=== PATIENT | male | born 1995 | race Caucasian/White ===

== ENCOUNTER 2017-06-04 16:10 | Emergency (ER) | payer MEDICAID, OTHER ==
[2017-06-04 16:39] VITALS: TEMP 98.8; O2SAT 99
--- NOTE | 2017-06-04 17:48 | ED PDOC ---
Arrival/HPI - General Chief Complaint: Lower Extremity Problem/Injury Time Seen by Provider: 06/04/17 16:43 Historian: Patient - History of Present Illness Narrative History of Present Illness (Text): 06/04/17 17:44 22-year-old male presents today with right knee pain status post injury. Patient states he fell while moving boxes and landed on a metal isra sustaining an injury to the anterior aspect of the right knee. Patient is complaining of severe pain to the anterior aspect of the knee with the inability to extend the knee. He denies numbness weakness or tingling in the extremity. Patient states he has a prior history of fracture in that knee. No medications taken for pain. Incident occurred prior to arrival. Patient denies head injury. Denies neck or back pain. Denies dizziness or weakness. Past Medical History - Provider Review Nursing Documentation Reviewed: Yes - Travel History Have you recently traveled outside [place] w/in the past 3 mons?: No - Past History Past History: No Previous - Tetanus Immunization Tetanus Immunization: Unknown - Psychiatric Hx Depression: No Hx Emotional Abuse: No Hx Physical Abuse: No Hx Substance Use: Yes - Surgical History Hx Appendectomy: Yes - Suicidal Assessment Feels Threatened In Home Enviroment: No Family/Social History - Physician Review Nursing Documentation Reviewed: Yes Family/Social History: Unknown Family HX Smoking Status: Never Smoked Hx Alcohol Use: No Hx Substance Use: Yes Substance used: Marijuana Hx Substance Use Treatment: No Allergies/Home Meds Allergies/Adverse Reactions: Allergies No Known Allergies Allergy (Verified 06/15/15 21:39) Review of Systems - Review of Systems Constitutional: absent: Fatigue, Fevers Respiratory: absent: SOB, Cough Cardiovascular: absent: Chest Pain, Palpitations Gastrointestinal: absent: Abdominal Pain, Diarrhea, Nausea, Vomiting Musculoskeletal: Arthralgias (right knee). absent: Back Pain, Neck Pain Skin: absent: Rash, Pruritis Neurological: absent: Headache, Dizziness Psychiatric: absent: Anxiety, Depression Physical Exam Vital Signs Reviewed: Yes Vital Signs Temp Pulse Resp BP Pulse Ox 06/04/17 16:36 98.8 F 59 L 16 141/77 99 Temperature: Afebrile Blood Pressure: Normal Pulse: Regular Respiratory Rate: Normal Appearance: Positive for: Well-Appearing, Non-Toxic, Comfortable Pain Distress: None Mental Status: Positive for: Alert and Oriented X 3 - Systems Exam Head: Present: Atraumatic Mouth: Present: Moist Mucous Membranes Neck: Present: Normal Range of Motion Respiratory/Chest: Present: Clear to Auscultation, Good Air Exchange. No: Respiratory Distress, Accessory Muscle Use Cardiovascular: Present: Regular Rate and Rhythm, Normal S1, S2. No: Murmurs Abdomen: No: Tenderness, Rebound, Guarding Back: No: Midline Tenderness, Paraspinal Tenderness Upper Extremity: Present: Normal Inspection, Normal ROM Lower Extremity: Present: NORMAL PULSES, Tenderness (right knee; + edema and tenderness noted over the anterior aspect of the knee with knee held inflexion with inability to extend knee. no calf tenderness. ), Swelling, Neurovascularly Intact, Capillary Refill < 2 s. No: CALF TENDERNESS, Normal ROM, Erythema Neurological: Present: GCS=15, Speech Normal Skin: Present: Warm, Dry, Normal Color Psychiatric: Present: Alert, Oriented x 3 Medical Decision Making ED Course and Treatment: 06/04/17 17:50 22-year-old male with right knee pain status post injury Toradol given for pain X-rays of the right knee: Question tibial plateau fracture pt reassessment; pt feeling better after medications; still unable to extend knee; CAT scan of the Right knee:FINDINGS: There is an avulsion fracture of the lateral aspect of the tibial spine, with a roughly 1.8 x 0.3 centimeter osteochondral fragment in the anterior aspect of the intercondylar notch. There is no joint effusion. No additional fracture or dislocation is observed. IMPRESSION: Anterior intercondylar notch fracture as discussed above 06/04/17 19:[address] Romano orthopedist; he advised han dressing, knee immobilizer, non weight bearing, crutches, f/u in office sunday morning at 9am. copy of xrays and CT given to patient to bring to orthopedist. pt placed in han dressing, knee immobilizer, crutches given for ambulation. All results discussed in depth with patient and family. Patient advised to follow-up with the orthopedist SundayJune 08 at 9 AM. Advised immediate return if symptoms worsen or persist or if new concerning symptoms develop. Stressed the importance of using crutches and nonweightbearing status. Patient verbalizes understanding of discharge instructions and need for immediate followup. all aspects of this case were discussed the attending of record. Impression: Tibial spine fracture, knee fracture Motrin every 6 hours as needed for pain Percocet 1 tablet every 6 hours as needed for [id number] pain: May cause drowsiness Rest, ice, compression, elevation Use crutches for ambulation Follow-up with the orthopedist SundayJune 08 at 9 AM - bring the copy of x-rays and CAT scan with you to the office. Return immediately if symptoms worsen or persist or if new concerning symptoms develop - RAD Interpretation Radiology Orders: 06/04/17 16:44 KNEE W PATELLA RIGHT 3 VIEW [RAD] Stat 06/04/17 17:19 EXT LOWER W/O CONTRAST RIGHT [CT] Stat - Medication Orders Current Medication Orders: Discontinued Medications Ketorolac Tromethamine (Toradol) 60 mg IM STAT STA Stop: 06/04/17 16:44 Last Admin: 06/04/17 16:49 Dose: 60 mg Ketorolac Tromethamine (Toradol) Confirm Administered Dose 60 mg .ROUTE .STK- MED ONE Stop: 06/04/17 16:47 Last Admin: 06/04/17 16:49 Dose: Disposition/Present on Arrival - Present on Arrival Any Indicators Present on Arrival: No History of DVT/PE: No History of Uncontrolled Diabetes: No Urinary Catheter: No History of Decub. Ulcer: No History Surgical Site Infection Following: None - Disposition Have Diagnosis and Disposition been Completed?: Yes Diagnosis: Closed fracture of tibial spine Disposition: HOME/ ROUTINE Disposition Time: 19:31 Patient Plan: Discharge Condition: GOOD Discharge Instructions (ExitCare): Leg Fracture (ED) Additional Instructions: Motrin every 6 hours as needed for pain Percocet 1 tablet every 6 hours as needed for pjbplwir-rd-[id number] pain: May cause drowsiness Rest, ice, compression, elevation Use crutches for ambulation Follow-up with the orthopedist SundayJune 08 at 9 AM - bring the copy of x-rays and CAT scan with you to the office. Return immediately if symptoms worsen or persist or if new concerning symptoms develop Prescriptions: Ibuprofen [Motrin] 600 mg PO Q6H PRN #20 tab PRN Reason: pain/fever reduction oxyCODONE/Acetaminophen [Percocet 5/325 mg Tab] 1 tab PO Q6H PRN #6 tab PRN Reason: moderate to severe pain Referrals: Harriet Ayala MD [Primary Care Provider] - Follow up with primary Ameya Romano III, MD [Medical Doctor] - Follow up with primary Forms: [employer] (Chinese), WORK NOTE
--- NOTE | 2017-06-04 18:34 | CT ---
PROCEDURE: HISTORY: knee pain s/p injury COMPARISON: TECHNIQUE: FINDINGS: There is an avulsion fracture of the lateral aspect of the tibial spine, with a roughly 1.8 x 0.3 centimeter osteochondral fragment in the anterior aspect of the intercondylar notch. There is no joint effusion. No additional fracture or dislocation is observed. IMPRESSION: Anterior intercondylar notch fracture as discussed above
[2017-06-04 19:26] VITALS: BP 115/58; PULSE 54; RESP 18
--- NOTE | 2017-06-05 08:56 | RAD ---
PROCEDURE: Right Knee Radiographs. HISTORY: knee pain COMPARISON: None. FINDINGS: BONES: Normal. No fracture. JOINTS: Normal. No osteoarthritis. JOINT EFFUSION: None. OTHER FINDINGS: None. IMPRESSION: Normal radiographs of the right knee.
== END 2017-06-04 19:57 | disposition home or self-care (01) ==
LOC: ED 16:10
DX: S82.111A Displaced fracture of right tibial spine, initial encounter for closed fracture (principal); W18.39XA Other fall on same level, initial encounter; Y93.89 Activity, other specified; Y92.89 Other specified places as the place of occurrence of the external cause; Y99.0 Civilian activity done for income or pay
CPT/HCPCS: 73562; 73700; 96372; 99284; J1885

== ENCOUNTER 2017-06-30 15:24 | Emergency (ER) | payer OTHER ==
[2017-06-30 15:44] VITALS: BP 131/78; PULSE 78; RESP 18; TEMP 98.7; O2SAT 97
--- NOTE | 2017-06-30 16:26 | ED PDOC ---
Arrival/HPI - General Chief Complaint: Lower Extremity Problem/Injury Time Seen by Provider: 06/30/17 15:48 Historian: Patient - History of Present Illness Narrative History of Present Illness (Text): 06/30/17 16:20 A 22 year old male, whose past medical history includes surgery at [facility] on 2016 for a tibia fracture after falling at work and sustaining injury to his knee, presents to the emergency department with right knee pain. The patient states that he went to the orthopedist yesterday to get his sutures removed, and was advised by the doctor to gradually start putting weight on the knee. When trying to get into the elevator, the patient struck his heel on the uneven entrance of the elevator and has been experiencing increasing pain since. The patient states that he took Motrin, but his symptoms have not improved. The patient denies fevers, chills, numbness/tingling or any other complaints. PMD: Dr. Ayala Orthopedist: Dr. Gastelum Time/Duration: Other (Yesterday) Symptom Onset: Sudden Symptom Course: Unchanged Activities at Onset: Rest, Light Context: Other ('s office) Past Medical History - Provider Review Nursing Documentation Reviewed: Yes - Past History Past History: No Previous - Infectious Disease Hx of Infectious Diseases: None - Tetanus Immunization Tetanus Immunization: Unknown - Psychiatric Hx Depression: No Hx Emotional Abuse: No Hx Physical Abuse: No Hx Substance Use: Yes - Surgical History Hx Appendectomy: Yes Hx Orthopedic Surgery: Yes (06/12/17) - Suicidal Assessment Feels Threatened In Home Enviroment: No Family/Social History - Physician Review Nursing Documentation Reviewed: Yes Family/Social History: No Known Family HX Smoking Status: Never Smoked Hx Alcohol Use: No Hx Substance Use: Yes Substance used: Marijuana Hx Substance Use Treatment: No Allergies/Home Meds Allergies/Adverse Reactions: Allergies No Known Allergies Allergy (Verified 06/30/17 15:43) Review of Systems - Physician Review All systems were reviewed & negative as marked: Yes - Review of Systems Constitutional: absent: Fevers, Night Sweats ENT: absent: Sore Throat Respiratory: absent: SOB, Cough Cardiovascular: absent: Chest Pain, BURNETT Gastrointestinal: absent: Abdominal Pain, Stool Changes, Diarrhea, Nausea, Vomiting Genitourinary Male: absent: Urinary Output Changes Musculoskeletal: Other (Right knee pain). absent: Back Pain, Neck Pain Neurological: absent: Headache, Dizziness Physical Exam Vital Signs Reviewed: Yes Vital Signs Temp Pulse Resp BP Pulse Ox 06/30/17 15:39 98.7 F 78 18 131/78 97 Temperature: Afebrile Blood Pressure: Normal Pulse: Regular Respiratory Rate: Normal Appearance: Positive for: Well-Appearing, Non-Toxic, Comfortable Pain Distress: Mild Mental Status: Positive for: Alert and Oriented X 3 - Systems Exam Head: Present: Atraumatic, Normocephalic Pupils: Present: PERRL Extroacular Muscles: Present: EOMI Conjunctiva: Present: Normal Mouth: Present: Moist Mucous Membranes Neck: Present: Normal Range of Motion Respiratory/Chest: Present: Clear to Auscultation, Good Air Exchange. No: Respiratory Distress, Accessory Muscle Use Cardiovascular: Present: Regular Rate and Rhythm, Normal S1, S2. No: Murmurs Abdomen: Present: Normal Bowel Sounds. No: Tenderness, Distention, Peritoneal Signs Back: Present: Normal Inspection Upper Extremity: Present: Normal Inspection. No: Cyanosis, Edema Lower Extremity: Present: Normal Inspection, NORMAL PULSES, Tenderness (Right knee: mild tenderness to touch), Swelling (Moderate swelling to right knee.), Neurovascularly Intact, Capillary Refill < 2 s, Other (Knee brace on right knee present). No: Edema Neurological: Present: GCS=15, CN II-XII Intact, Speech Normal Skin: Present: Warm, Dry, Normal Color. No: Rashes Psychiatric: Present: Alert, Oriented x 3, Normal Insight, Normal Concentration Medical Decision Making ED Course and Treatment: 06/30/17 16:28 Impression: A 22 year old male presents to the emergency department with right knee pain. Plan: -- Toradol -- Right Knee X- Ray -- Reassess and disposition Prior Visits: Notes and results from previous visits were reviewed. On 06/04/2017 the patient was seen in the emergency department for knee pain due to a work injury. The patient was discharged home with a prescription of Motrin and Percocet. Progress Notes: XR right knee: (+) mild soft tissue edema, 1 screw noted to the proximal head of the tibia, no fracture, no dislocation, as read by PA X-ray results discussed with the patient in great detail. Advised to continue wearing his knee brace, to elevate the knee, otherwise to follow up with his ortho in 1-2 days without fail. Continue taking Motrin for pain. Return to the emergency room at any time for any new or worsening symptoms. Patient states he fully agrees with and understands discharge instructions. States that he agrees with the plan and disposition. Verbalized and repeated discharge instructions and plan. I have given the patient opportunity to ask any additional questions. - RAD Interpretation Radiology Orders: 06/30/17 16:21 KNEE RIGHT 2 VIEWS (AP & LAT) [RAD] Stat - Medication Orders Current Medication Orders: Discontinued Medications Ketorolac Tromethamine (Toradol) 60 mg IM STAT STA Stop: 06/30/17 16:22 Last Admin: 06/30/17 16:32 Dose: 60 mg MAR Pain Assessment Document 06/30/17 16:32 TA (Rec: 06/30/17 16:40 TA [id number]) Pain Reassessment Is this a pain reassessment? No Sleep Is patient sleeping during reassessment? No Presence of Pain Presence of Pain No Pain Scale Used Pain Scale Used Numeric Location Left, Right or Bilateral Left Pain Location Body Site Leg Description Description Constant Intensity of Pain at present 9 Acceptable Level of Pain 0 Aggravating Factors ADL's Alleviating Factors/Management Medication Techniques IM Administration Charges Document 06/30/17 16:32 TA (Rec: 06/30/17 16:40 TA [id number]) Injection Site MAR Injection Site Left Deltoid Charges for Administration # of IM Administrations 1 - PA / FANCY WIRE DRAWER / Resident Statement MD/DO has reviewed & agrees with the documentation as recorded. - Scribe Statement The provider has reviewed the documentation as recorded by the Ismael Cotto Provider Scribe Attestation: All medical record entries made by the Scribe were at my direction and personally dictated by me. I have reviewed the chart and agree that the record accurately reflects my personal performance of the history, physical exam, medical decision making, and the department course for this patient. I have also personally directed, reviewed, and agree with the discharge instructions and disposition. Disposition/Present on Arrival - Present on Arrival Any Indicators Present on Arrival: No History of DVT/PE: No History of Uncontrolled Diabetes: No Urinary Catheter: No History of Decub. Ulcer: No History Surgical Site Infection Following: Orthopedic Procedures - Disposition Have Diagnosis and Disposition been Completed?: Yes Diagnosis: Knee pain, acute Disposition: HOME/ ROUTINE Disposition Time: 17:15 Patient Plan: Discharge Condition: STABLE Discharge Instructions (ExitCare): Swollen Knee Joint (ED), Knee Pain (ED) Print Language: KYRGYZ Additional Instructions: Thank you for letting us take care of you today. You were treated for R knee pain, s/p knee surgery. The emergency medical care you received today was directed at your acute symptoms. If you were prescribed any medication, please fill it and take as directed. It may take several days for your symptoms to resolve. Return to the Emergency Department if your symptoms worsen, do not improve, or if you have any other problems. Please contact your orthopedic doctor in 2 days for re-evaluation and follow up. Bring any paperwork you were given at discharge with you along with any medications you are taking to your follow up visit. Our treatment cannot replace ongoing medical care by a primary care provider (PCP) outside of the emergency department. Thank you for allowing the [facility] team to be part of your care today. If you had an X-Ray : A Radiologist will review the ED reading if any change in treatment is needed we will contact you. Referrals: Harriet Ayala MD [Primary Care Provider] - Follow up with primary Forms: [facility] (Albanian)
--- NOTE | 2017-07-01 17:06 | RAD ---
PROCEDURE: Right Knee Radiographs. HISTORY: pain, s/p sx COMPARISON: 06/04/2017 FINDINGS: BONES: Postoperative findings likely relate to ACL repair. Tiny punctate metallic foreign bodies lateral to the patellar tendon. JOINTS: Normal. No osteoarthritis. JOINT EFFUSION: None. OTHER FINDINGS: None. IMPRESSION: Postoperative findings and punctate foreign bodies in the infrapatellar region adjacent to, lateral to the patellar tendon.
== END 2017-06-30 17:34 | disposition home or self-care (01) ==
LOC: ED 15:24
DX: M25.561 Pain in right knee (principal)
CPT/HCPCS: 73560; 96372; 99283; J1885

== ENCOUNTER 2018-03-02 01:45 | Emergency (ER) | payer SELFPAY ==
[2018-03-02 02:09] VITALS: BMI 25.6
[2018-03-02 02:10] VITALS: RESP 18; TEMP 98.2
--- NOTE | 2018-03-02 02:58 | ED PDOC ---
Arrival/HPI - General Historian: Patient - General Chief Complaint: ENT Problem Time Seen by Provider: 03/02/18 01:47 - History of Present Illness Narrative History of Present Illness (Text): 03/02/18 01:28 This is a 22 yo M with hx of Right tibia and surgical repair who presents with complaint of pressure behind bilateral eyes and sinus congestion. Reports flew in from multi-stop international vacation 2 days prior, admits to several sick contacts on plane. Describes pressure behind eyes as constant, equal bilaterally, worse with bright lights, not different with loud noises, no radiation. Denies nausea or emesis, fevers, chills. Reports persistent clear discharge and dry cough x2 days. Denies shortness of breath, hemoptysis, focal weakness, malaise, fatigue. All other ROS in 12-system review negative. PMH: none PSH: right tibia fracture repair 1 yr prior Fam Hx: Migraines (mother), HTN (mother) Soc Hx: admits intermittent tobacco (vaping), intermittent marijuana (last used 4 days prior), denies EtOH, College student currently living at home PMD: Jamie (Duncan Rosas) Past Medical History - Provider Review Nursing Documentation Reviewed: Yes - Past History Past History: No Previous - Infectious Disease Hx of Infectious Diseases: None - Tetanus Immunization Tetanus Immunization: Unknown - Psychiatric Hx Depression: No Hx Emotional Abuse: No Hx Physical Abuse: No Hx Substance Use: Yes - Surgical History Hx Appendectomy: Yes Hx Orthopedic Surgery: Yes (06/12/17) - Anesthesia Hx Anesthesia: Yes Hx Anesthesia Reactions: No Hx Malignant Hyperthermia: No - Suicidal Assessment Feels Threatened In Home Enviroment: No Family/Social History - Physician Review Nursing Documentation Reviewed: Yes Family/Social History: Hypertension, Other (migraines) Smoking Status: Never Smoked Hx Alcohol Use: No Hx Substance Use: Yes Substance used: Marijuana Hx Substance Use Treatment: No Allergies/Home Meds Allergies/Adverse Reactions: Allergies No Known Allergies Allergy (Verified 06/30/17 15:43) Review of Systems - Physician Review All systems were reviewed & negative as marked: Yes (as per HPI) Physical Exam Vital Signs Reviewed: Yes Temperature: Afebrile Blood Pressure: Normal Pulse: Regular Respiratory Rate: Normal Appearance: Positive for: Well-Appearing, Non-Toxic, Comfortable Pain Distress: None Mental Status: Positive for: Alert and Oriented X 3 - Systems Exam Head: Present: Atraumatic, Normocephalic Pupils: No: Pinpoint Extroacular Muscles: Present: EOMI Conjunctiva: Present: Normal. No: Injected, Icteric Mouth: Present: Moist Mucous Membranes, Normal Lips, Normal Tounge, Normal Teeth. No: Dry, Drooling Nose (External): Present: Atraumatic. No: Abrasion, Laceration Neck: Present: Normal Range of Motion. No: JVD Respiratory/Chest: Present: Clear to Auscultation, Good Air Exchange. No: Respiratory Distress, Accessory Muscle Use, Wheezes, Rales, Rhonchi Cardiovascular: Present: Regular Rate and Rhythm, Normal S1, S2. No: Murmurs, Irregular Rhythm, Tachycardic, Bradycardic Abdomen: Present: Normal Bowel Sounds. No: Tenderness, Distention, Peritoneal Signs, Mass/Organomegaly Upper Extremity: Present: Normal Inspection, Normal ROM, NORMAL PULSES. No: Cyanosis, Edema, Tenderness, Swelling, Erythema Lower Extremity: Present: Normal Inspection, NORMAL PULSES, Normal ROM. No: Edema, CALF TENDERNESS, Cyanosis, Tenderness, Swelling, Erythema Neurological: Present: GCS=15, Speech Normal, Motor Func Grossly Intact, Normal Sensory Function Skin: Present: Warm, Dry, Normal Color. No: Rashes Lymphatic: No: Cervical Adenopathy Psychiatric: Present: Alert, Oriented x 3, Normal Insight, Normal Concentration , Normal Affect, Normal Mood Vital Signs Temp Pulse Resp BP Pulse Ox 03/02/18 03:43 82 18 118/72 100 03/02/18 02:10 98.2 F 71 18 144/72 98 Medical Decision Making ED Course and Treatment: 03/02/18 01:32 Ddx: viral syndrome acquired from air travel vs migraine Afebrile, normal vitals, clear lungs and no sinus tenderness on exam Given prescription for Z-connor to cover for atypicals/CAP, instructed to take Motrin as needed for headache, encouraged PO fluid intake, instructed to avoid all further tobacco use or marijuana use. Discharged to home, instructed to follow up within 1 week of discharge with PMD. Seen, reviewed, and discussed with attending, Dr. Valiente (Duncan Rosas) 03/02/18 04:36 pt seen with resident. 22 yo male, present with mild cardenas, sinus congestion, rhinnorhea x 1 day. in er, on phone in nad, neuro intact. pt declines lab work. will treat for sinusitis. ambulatory steady gait, smilin hugon nad. advise otu raul (Taz Valiente) Disposition/Present on Arrival - Present on Arrival Any Indicators Present on Arrival: No History of DVT/PE: No History of Uncontrolled Diabetes: No Urinary Catheter: No History of Decub. Ulcer: No History Surgical Site Infection Following: Orthopedic Procedures - Disposition Have Diagnosis and Disposition been Completed?: Yes Disposition Time: 03:12 Patient Plan: Discharge - Disposition Diagnosis: Viral syndrome, Cough Disposition: HOME/ ROUTINE Condition: GOOD Discharge Instructions (ExitCare): Cough in Adults, Cough, Runny Nose, and the Common Cold (DC) Additional Instructions: You were seen in the ED for your cough and Headache. Most likely, you have a viral syndrome, most likely caught during your air travel. You have been given a prescription for an antibiotic. Please take as directed. Please follow up with your PMD within 1 week. Please refrain from any further tobacco use or smoking. If you experience worsening or newly concerning symptoms, please return to a hospital. Prescriptions: Azithromycin [Z-Connor] 250 mg PO DAILY #6 tab Referrals: Harriet Ayala MD [Staff Provider] - Follow up with primary Forms: [employer] (Irish)
[2018-03-02 03:45] VITALS: BP 118/72; PULSE 82; O2SAT 100
== END 2018-03-02 03:43 | disposition home or self-care (01) ==
LOC: ED 01:45
DX: B34.9 Viral infection, unspecified (principal); R05 Cough

== ENCOUNTER 2018-10-23 09:26 | Emergency (ER) | payer MEDICAID, OTHER ==
[2018-10-23 09:53] VITALS: BP 137/74; PULSE 72; RESP 18; TEMP 97.7; O2SAT 95; BMI 26.4
--- NOTE | 2018-10-23 10:19 | ED PDOC ---
Arrival/HPI - General Chief Complaint: Abnormal Skin Integrity Time Seen by Provider: 10/23/18 09:40 Historian: Patient - History of Present Illness Narrative History of Present Illness (Text): 10/23/18 10:16 23yo male with no past medical history who present with complaint of left sided neck lump x one month. states he gets intermittent pain to the area, but came to the emergency department because he wants the lump out. He denies current pain, fever, chills, sore throat, any other complaint. Past Medical History - Provider Review Nursing Documentation Reviewed: Yes - Travel History If Yes, travel location?: [place] - Past History Past History: No Previous - Infectious Disease Hx of Infectious Diseases: None - Tetanus Immunization Tetanus Immunization: Unknown - Psychiatric Hx Depression: No Hx Emotional Abuse: No Hx Physical Abuse: No Hx Substance Use: No - Surgical History Hx Appendectomy: Yes Hx Orthopedic Surgery: Yes (06/12/17) - Anesthesia Hx Anesthesia: Yes Hx Anesthesia Reactions: No Hx Malignant Hyperthermia: No - Suicidal Assessment Feels Threatened In Home Enviroment: No Family/Social History - Physician Review Nursing Documentation Reviewed: Yes Family/Social History: Unknown Family HX Smoking Status: Never Smoked Hx Alcohol Use: No Hx Substance Use: No Substance used: Marijuana Hx Substance Use Treatment: No Allergies/Home Meds Allergies/Adverse Reactions: Allergies No Known Allergies Allergy (Verified 06/30/17 15:43) Review of Systems - Physician Review All systems were reviewed & negative as marked: Yes - Review of Systems Constitutional: Normal Eyes: Normal ENT: Normal Respiratory: Normal Cardiovascular: Normal Gastrointestinal: Normal Genitourinary Male: Normal Musculoskeletal: Normal Skin: Other (Lump to left sided neck) Neurological: Normal Endocrine: Normal Hemo/Lymphatic: Normal Psychiatric: Normal Physical Exam Vital Signs Reviewed: Yes Vital Signs Temp Pulse Resp BP Pulse Ox 10/23/18 09:48 97.7 F 72 18 137/74 95 Temperature: Afebrile Blood Pressure: Normal Pulse: Regular Respiratory Rate: Normal Appearance: Positive for: Well-Appearing, Non-Toxic, Comfortable Pain Distress: None Mental Status: Positive for: Alert and Oriented X 3 - Systems Exam Head: Present: Atraumatic, Normocephalic Pupils: Present: PERRL Extroacular Muscles: Present: EOMI Conjunctiva: Present: Normal Mouth: Present: Moist Mucous Membranes Neck: Present: Normal Range of Motion Respiratory/Chest: Present: Clear to Auscultation, Good Air Exchange. No: Respiratory Distress, Accessory Muscle Use Cardiovascular: Present: Regular Rate and Rhythm, Normal S1, S2. No: Murmurs Abdomen: No: Tenderness, Distention, Peritoneal Signs Back: Present: Normal Inspection Upper Extremity: Present: Normal Inspection. No: Cyanosis, Edema Lower Extremity: Present: Normal Inspection. No: Edema Neurological: Present: GCS=15, CN II-XII Intact, Speech Normal Skin: Present: Warm, Dry, Normal Color, Other (Approximately one x one nontender, movable cyst to left sided neck). No: Rashes Psychiatric: Present: Alert, Oriented x 3, Normal Insight, Normal Concentration Medical Decision Making ED Course and Treatment: 10/23/18 20:22 Pt presented for stated history. He was advised to follow up with oncologist for outpt work up Disposition/Present on Arrival - Present on Arrival Any Indicators Present on Arrival: No History of DVT/PE: No History of Uncontrolled Diabetes: No Urinary Catheter: No History of Decub. Ulcer: No History Surgical Site Infection Following: Orthopedic Procedures - Disposition Have Diagnosis and Disposition been Completed?: Yes Diagnosis: Cyst Disposition: HOME/ ROUTINE Disposition Time: 10:25 Patient Plan: Discharge Condition: STABLE Discharge Instructions (ExitCare): Epidermal Cyst Additional Instructions: Follow up[ with your doctor/Oncologist Return to emergency department for any new symptoms Referrals: Angelia Victoria MD [Medical Doctor] - Follow up with primary Sarai Zimmerman MD [Staff Provider] - Follow up with primary Forms: [employer] (Indian)
== END 2018-10-23 10:32 | disposition home or self-care (01) ==
LOC: ED 09:26
DX: L72.9 Follicular cyst of the skin and subcutaneous tissue, unspecified (principal)